=== PATIENT | male | born 1955 | race Caucasian/White ===

== ENCOUNTER 2016-11-04 16:21 | Inpatient (IN) | payer OTHER ==
[~2016-11-04] VITALS: Ht 180.3 cm; Wt 136.3 kg
[~2016-11-04 16:21] MED LIST: ADVAIR 250/501 DISK IH; AMLODIPINE BESY10 MG PO; AMLODIPINE BESYL5 MG PO; AQUASOL-A,10000 UNIT PO; ARANESP60 MCG/0.3 SC; ASCORBIC ACID250 MG PO; ASCORBIC ACID500 M3 PO; ASCORBIC ACID500 MG PO; ASPIR 8181 M1 PO; ASPIR-LOW81 MG PO; ASPIR-TRIN325 M1 PO; AVENTYL,PAMELOR10 MG PO; Ascorbic Acid,Ester- PO; Aspirin E.C. PO; BACTRIM,SEPT1 TABLE1 PO; BENADRYL25 MG PO; Bactrim,Septra DS 80 PO; CHEWABLE MULTI1 EACH PO; CLINDAMYCIN 600 MG IV; COUMADIN3 MG PO; COUMADIN4 MG PO; CYANOCOBALAM1000 MCG PO; Chloraseptic Spray C MM; Chronulac,Cephulac,E PO; Cozaar PO; Cymbalta PO; DAILY VALUE1 EACH PO; DOLOPHINE HCL10 MG PO; DUONEB 2.5-0.5 M3 ML AEROSOL; DUONEB 2.5-0.5 M3 ML IH; Dextrose 10% in Wate IV; Dextrose 50% in Wate IV; DuoNeb IH; ELIQUIS2.5 MG PO; ELIQUIS5 MG PO; ENDOCET 5-3251 EACH PO; EPOGEN,PRO10000 UNIT IV; EPOGEN,PRO20000 UNIT IV; EPOGEN,PRO20000 UNIT SC; Ecotrin PO; FEOSOL325 MG PO; FERGON324 MG PO; FERROUS SULFAT325 MG PO; FLORASTOR250 MG PO; FOLIC ACID1 MG PO; Feosol PO; Folvite PO; GABAPENTIN100 MG PO; GLUCAGEN1 MG IM/SC; GLUCO BURST37.5 GM PO; HEP-LOCK F100 UNIT/1 IV; HEPARIN LO IV; HEPARIN SO5000 UNITS SC; HYDRALAZINE HCL10 MG PO; IRON325 M1 PO; IRON325 MG PO; KETOCONAZOLE60 GM TP; KLONOPIN1 M1 PO; KLONOPIN1 MG PO; KlonoPIN PO; LABETALOL HCL100 MG PO; LANTUS 3 M100 UNITS/ SC; LANTUS 3 M100 UNITS1 SC; LEVEMIR FL100 UNIT/1 SC; LEVEMIR FL100 UNITS/ SC; LEVEMIR100 UNIT/2 SC; LISINOPRIL2.5 MG PO; LO-DOSE ASPIRIN81 M1 PO; MEROPENEM1 GM IV; METHADONE HCL40 MG PO; METHADONE1 MG/1 ML PO; METHADONE10 MG PO; METHADONE5 MG PO; METHadone HCl PO; MIRALAX, GLYCOL1 PK1 PO; MIRALAX17 GM PO; MIRALAX255 GM PO; MULTIVITAMIN1 EAC2 PO; Methadone PO; Miralax, Glycolax PO; NEURONTIN100 MG PO; NEURONTIN300 MG PO; NITROSTAT0.4 MG SL; NORMAL SALINE FL5 ML IV; NORTRIPTYLINE H10 MG PO; NORVASC5 MG PO; NOVOLIN 70100 UNIT/1 SQ; NOVOLIN 70100 UNITS/ SC; NOVOLIN SC; NOVOLOG 10100 UNITS/ SC; NOVOLOG MI100 UNIT/M PO; NOVOLOG MI100 UNIT/M SC; NOVOLOG PE100 UNITS/ SC; Neurontin PO; Nizoral 2% Cream TP; Norvasc PO; OMEPRAZOLE20 M2 PO; OMEPRAZOLE20 MG PO; OMEPRAZOLE40 M1 PO; ONE-A-DAY ESSE1 EAC1 PO; OXYCODONE HCL5 MG PO; PHENERGAN25 MG/ML IM; POLY-VITAMIN1 EACH PO; POLYETHYLENE G255 GM; PRILOSEC40 MG PO; PROCRIT10000 UNI1 IV; PROMETHAZINE12.5 M1 PO; PROTONIX40 MG PO; Pepcid PO; QUETIAPINE FUM100 MG PO; QUETIAPINE FUM200 MG PO; QUETIAPINE FUM300 MG PO; QUETIAPINE FUMA50 MG PO; RANITIDINE HCL150 MG PO; ROXICODONE5 MG PO; Rocephin IV; SENNA PLUS TAB1 EACH PO; SENNA8.6 MG PO; SEROQUEL XR150 MG PO; SEROQUEL XR300 MG PO; SEROQUEL100 MG PO; SEROQUEL200 MG PO; SEROQUEL300 MG PO; SEROQUEL50 MG PO; SEROquel PO; SODIUM CHLORIDE1 G1 PO; SPIRONOLACTONE25 MG PO; ST. JOSEPH ASPI81 MG PO; SUDAFED PO; Seroquel PO; TAMSULOSIN HCL0.4 MG PO; TRANDATE100 MG PO; TYLENOL REGULA325 MG PO; TYLENOL W/COD1 COMBO PO; TYLENOL WITH C1 EACH PO; Theragran PO; Unasyn IV; VANCOMYCIN1 GM/250 M IV; VANCOMYCIN1.25 GM/25 IV; VANCOMYCIN1500 MG/25 IV; VIBRAMYCIN100 MG PO; VITAMIN C100 MG PO; VITAMIN D2000 INTUN PO; VITAMIN D2000 UNIT PO; VITAMIN D22000 UNIT PO; Vancomycin IV; Vibramycin, Doryx PO; Vitamin D PO; ZANTAC150 MG PO; ZOSYN 3.373.375 GM/5 IV; ZOSYN 3.3753.375 GM IV; ZYVOX600 MG PO; ZYVOX600 MG/300 IV; Zinc Sulfate PO; oxyCODONE PO
[2016-11-04] MEDS ORDERED: NORVASC10 MG PO (16:27)
[2016-11-04] MEDS ORDERED: ASPIR 8181 M1 PO (16:28)
[2016-11-04] MEDS ORDERED: ARANESP60 MCG/0.3 IV (16:28)
[2016-11-04] MEDS ORDERED: CELEXA20 MG PO (16:29)
[2016-11-04] MEDS ORDERED: CYANOCOBALAM1000 MCG PO (16:29)
[2016-11-04] MEDS ORDERED: FOLIC ACID1 MG PO (16:30)
[2016-11-04] MEDS ORDERED: LEVEMIR FL100 UNIT/1 SC (16:30)
[2016-11-04] MEDS ORDERED: IRON325 MG PO (16:30)
[2016-11-04] MEDS ORDERED: METHADONE5 MG PO ×2 (16:31→16:35)
[2016-11-04] MEDS ORDERED: DAILY VALUE1 EACH PO (16:32)
[2016-11-04] MEDS ORDERED: PROTONIX40 MG PO (16:32)
[2016-11-04] MEDS ORDERED: FLOMAX0.4 MG PO (16:33)
[2016-11-04] MEDS ORDERED: SEROQUEL200 MG PO (16:33)
[2016-11-04] MEDS ORDERED: SEROQUEL50 MG PO (16:33)
[2016-11-04] MEDS ORDERED: FLORASTOR250 MG PO (16:34)
[2016-11-04] MEDS ORDERED: XANAX0.5 MG PO ×2 (16:34→16:41)
[2016-11-04] MEDS ORDERED: ELIQUIS2.5 MG PO (16:34)
[2016-11-04] MEDS ORDERED: VITAMIN C250 MG PO (16:34)
[2016-11-04] MEDS ORDERED: LABETALOL HCL100 MG PO (16:35)
[2016-11-04] MEDS ORDERED: SENNA PLUS TAB1 EACH PO (16:36)
[2016-11-04] MEDS ORDERED: MIRALAX17 GM PO (16:36)
[2016-11-04] MEDS ORDERED: HYDRALAZINE HCL PO (16:37)
[2016-11-04] MEDS ORDERED: [UNRECOGNIZED DRUG - OTHER] (16:38)
[2016-11-04] MEDS ORDERED: ADVAIR 250/501 DISK IH (16:38)
[2016-11-04] MEDS ORDERED: ATROVENT 00.5 MG/2.5 IH (16:39)
[2016-11-04] MEDS ORDERED: ROXICODONE5 MG PO (16:40)
[2016-11-04] MEDS ORDERED: PREVNAR 13 SYR0.5 ML IM (16:40)
[2016-11-04] MEDS ORDERED: TYLENOL WITH C1 EACH PO (16:41)
[2016-11-04 17:35] LABS: EOSINOPHIL (%) 0.4 % (0-5); HEMATOCRIT 25.6 % (38.0-50.0); IMMATURE GRANULOCYTE (%) 0.3 % (0.0-0.7); IMMATURE GRANULOCYTE COUNT 0.2 K/uL; LYMPHOCYTE COUNT 0.5 K/uL (1.0-2.8); MCH 28.7 PG (29.0-34.0); MCHC 31.6 G/DL (30.0-36.0); MCV 90.8 FL (86-99); MEAN PLAT.VOLUME 9.9 uM^3 (9.0-12.4); MONOCYTE COUNT 0.6 K/uL (0-0.8); NEUTROPHIL (%) 84.8 % (45-76); NEUTROPHIL COUNT 6.2 K/uL (1.8-6.4); RBC DIS.WIDTH-CV 13.3 % (11.8-14.6); RBC DIS.WIDTH-SD 42.4 % (39-53)
[2016-11-04 17:36] LABS: PLATELET COUNT 147 K/uL (156-360); RED BLOOD COUNT 2.82 M/uL (4.00-5.50); WHITE BLOOD COUNT 7.4 K/uL (4.1-10.2)
[2016-11-04 17:53] LABS: ANION GAP 8 MEQ/L (2-14); CHLORIDE 98 MEQ/L (99-109); POTASSIUM 4.7 MEQ/L (3.7-5.4); SAMPLE HEMOLYSIS CHECK 0; SAMPLE ICTERIC CHECK 0; SAMPLE LIPEMIA CHECK 0; SODIUM 132 MEQ/L (136-147); TOTAL BILIRUBIN 0.4 MG/DL (0.0-1.0)
[2016-11-04 17:59] LABS: ALKALINE PHOSPHATASE 113 IU/L (3-129); GFR ESTIMATE (CALCULATED) 35 mL/min/; GLUCOSE 311 mg/dL (70-99); UREA NITROGEN (BUN) 25 mg/dL (9-23)
[2016-11-04 18:16] LABS: INFLUENZA A VIRAL ANTIGEN NEGATIVE; INFLUENZA B VIRAL ANTIGEN NEGATIVE
[2016-11-04 18:35] LABS: ADD MIUA? YES; BILIRUBIN NEGATIVE; BLOOD NEGATIVE; COLOR YELLOW ((YELLOW)); GLUCOSE (STRIP) NEGATIVE; KETONES NEGATIVE; LEUKOCYTES TRACE; NITRITE NEGATIVE; PH, URINE 5.5 (5-8); PROTEIN (STRIP) 30
[2016-11-04 18:55] LABS: BACTERIA NONE SEEN; CASTS NONE SEEN /LPF; CRYSTALS NONE SEEN; EPITHELIAL CELLS RARE; MUCUS NONE SEEN; PATHOLOGICAL CAST NONE SEEN; RED BLOOD CELLS 0-5 /HPF (0-5); SMALL ROUND CELL NONE SEEN; UCUL ADDED? NO; WHITE BLOOD CELLS 0-5 /HPF (0-5); YEAST-LIKE CELL NONE SEEN
[2016-11-04] MEDS ORDERED: NOVOLOG PE100 UNITS/ SC (20:49)
[2016-11-04] MEDS ORDERED: APRESOLINE10 MG PO (20:50)
[2016-11-05 00:38] VITALS: BP 124/61
[2016-11-05 03:51] VITALS: BP 129/62
[2016-11-05 07:36] VITALS: BP 118/58
[2016-11-05 15:52] VITALS: BP 101/54
[2016-11-05 19:26] VITALS: BP 92/50
[2016-11-05 23:42] VITALS: BP 109/58
[2016-11-06 08:07] VITALS: BP 126/67
[2016-11-06 09:50] LABS: EOSINOPHIL (%) 6.5 % (0-5); EOSINOPHIL COUNT 0.2 K/uL (0-0.3); HEMATOCRIT 22.9 % (38.0-50.0); LYMPHOCYTE COUNT 0.7 K/uL (1.0-2.8); MCH 28.6 PG (29.0-34.0); MCHC 32.3 G/DL (30.0-36.0); MCV 88.4 FL (86-99); MEAN PLAT.VOLUME 9.9 uM^3 (9.0-12.4); MONOCYTE (%) 14.2 % (3-12); MONOCYTE COUNT 0.3 K/uL (0-0.8); NEUTROPHIL (%) 48.7 % (45-76); NEUTROPHIL COUNT 1.1 K/uL (1.8-6.4); PLATELET COUNT 122 K/uL (156-360); RBC DIS.WIDTH-CV 14.4 % (11.8-14.6); RED BLOOD COUNT 2.59 M/uL (4.00-5.50); WHITE BLOOD COUNT 2.3 K/uL (4.1-10.2)
[2016-11-06 10:20] LABS: ANION GAP 7 MEQ/L (2-14); CHLORIDE 107 MEQ/L (99-109); GFR ESTIMATE (CALCULATED) 35 mL/min/; POTASSIUM 4.6 MEQ/L (3.7-5.4); SAMPLE HEMOLYSIS CHECK 0; SAMPLE ICTERIC CHECK 0; SAMPLE LIPEMIA CHECK 0; UREA NITROGEN (BUN) 31 mg/dL (9-23)
[2016-11-06 10:21] LABS: GLUCOSE 92 mg/dL (70-99); SODIUM 140 MEQ/L (136-147)
[2016-11-06 12:05] LABS: POINT-OF-CARE METER ID UU13113712
[2016-11-06 16:40] LABS: HEMATOCRIT 25.5 % (38.0-50.0); MCV 88.5 FL (86-99)
[2016-11-06 17:05] VITALS: BP 111/62
[2016-11-06 17:08] LABS: POINT-OF-CARE METER ID UU14149397
[2016-11-06 19:29] VITALS: BP 129/65
[2016-11-06 23:06] VITALS: BP 136/63
[2016-11-07 06:16] LABS: POINT-OF-CARE METER ID UU13113725
[2016-11-07 07:05] LABS: EOSINOPHIL (%) 5.7 % (0-5); EOSINOPHIL COUNT 0.2 K/uL (0-0.3); HEMATOCRIT 23.8 % (38.0-50.0); LYMPHOCYTE COUNT 1.1 K/uL (1.0-2.8); MCH 28.3 PG (29.0-34.0); MCHC 31.9 G/DL (30.0-36.0); MCV 88.5 FL (86-99); MEAN PLAT.VOLUME 9.8 uM^3 (9.0-12.4); MONOCYTE (%) 13.8 % (3-12); MONOCYTE COUNT 0.4 K/uL (0-0.8); NEUTROPHIL (%) 43.2 % (45-76); NEUTROPHIL COUNT 1.3 K/uL (1.8-6.4); PLATELET COUNT 130 K/uL (156-360); RBC DIS.WIDTH-CV 14.3 % (11.8-14.6); RBC DIS.WIDTH-SD 45.4 % (39-53); RED BLOOD COUNT 2.69 M/uL (4.00-5.50)
[2016-11-07 07:38] LABS: ANION GAP 9 MEQ/L (2-14); CHLORIDE 106 MEQ/L (99-109); GFR ESTIMATE (CALCULATED) 39 mL/min/; GLUCOSE 92 mg/dL (70-99); POTASSIUM 4.6 MEQ/L (3.7-5.4); SAMPLE HEMOLYSIS CHECK 0; SAMPLE ICTERIC CHECK 0; SAMPLE LIPEMIA CHECK 0; SODIUM 139 MEQ/L (136-147); UREA NITROGEN (BUN) 29 mg/dL (9-23)
[2016-11-07 07:55] VITALS: BP 123/71
[2016-11-07 16:03] VITALS: BP 127/67
[2016-11-07 21:34] LABS: POINT-OF-CARE METER ID UU13113725
[2016-11-08 01:00] VITALS: BP 135/66
[2016-11-08 06:27] LABS: HEMATOCRIT 24.5 % (38.0-50.0); MCH 28.5 PG (29.0-34.0); MCHC 32.2 G/DL (30.0-36.0); MCV 88.4 FL (86-99); MEAN PLAT.VOLUME 10.5 uM^3 (9.0-12.4); PLATELET COUNT 149 K/uL (156-360); RBC DIS.WIDTH-SD 44.9 % (39-53); RED BLOOD COUNT 2.77 M/uL (4.00-5.50)
[2016-11-08 06:41] LABS: POINT-OF-CARE METER ID UU13113725
[2016-11-08 06:54] LABS: ANION GAP 6 MEQ/L (2-14); CHLORIDE 108 MEQ/L (99-109); GFR ESTIMATE (CALCULATED) 51 mL/min/; GLUCOSE 80 mg/dL (70-99); POTASSIUM 4.4 MEQ/L (3.7-5.4); SAMPLE HEMOLYSIS CHECK 0; SAMPLE ICTERIC CHECK 0; SAMPLE LIPEMIA CHECK 0; SODIUM 139 MEQ/L (136-147); UREA NITROGEN (BUN) 28 mg/dL (9-23)
[2016-11-08 08:00] VITALS: BP 117/66
[2016-11-08 11:40] LABS: POINT-OF-CARE METER ID UU13113725
[2016-11-08] MEDS ORDERED: TYLENOL WITH C1 EACH PO (14:19)
[2016-11-08] MEDS ORDERED: XANAX0.5 MG PO ×2 (14:19)
[2016-11-08] MEDS ORDERED: METHADONE5 MG PO ×2 (14:19)
[2016-11-08] MEDS ORDERED: ROXICODONE5 MG PO (14:19)
[2016-11-08 17:11] VITALS: BP 139/66
[2016-11-08 17:15] LABS: POINT-OF-CARE METER ID UU13113725
== END 2016-11-08 17:43 | DRG 872 ==
LOC: EME 16:21 → 3EAST 20:27 → 5EAST 20:27 → EDOF 20:27 → 3EAST 21:26 → 5EAST 11-06 19:09
PROVIDERS: Emergency Medicine; Hospitalist; Internal Medicine
DX: A41.02 Sepsis due to Methicillin resistant Staphylococcus aureus (principal); L03.115 Cellulitis of right lower limb; A40.1 Sepsis due to streptococcus, group B; R65.20 Severe sepsis without septic shock; N17.9 Acute kidney failure, unspecified; D61.818 Other pancytopenia; M86.671 Other chronic osteomyelitis, right ankle and foot; E11.621 Type 2 diabetes mellitus with foot ulcer; L97.419 Non-pressure chronic ulcer of right heel and midfoot with unspecified severity; L89.312 Pressure ulcer of right buttock, stage 2; E11.40 Type 2 diabetes mellitus with diabetic neuropathy, unspecified; G89.4 Chronic pain syndrome; E11.610 Type 2 diabetes mellitus with diabetic neuropathic arthropathy; E11.69 Type 2 diabetes mellitus with other specified complication; I25.10 Atherosclerotic heart disease of native coronary artery without angina pectoris; E11.21 Type 2 diabetes mellitus with diabetic nephropathy; E11.22 Type 2 diabetes mellitus with diabetic chronic kidney disease; I12.9 Hypertensive chronic kidney disease with stage 1 through stage 4 chronic kidney disease, or unspecified chronic kidney disease; N18.3 Chronic kidney disease, stage 3 (moderate); K21.9 Gastro-esophageal reflux disease without esophagitis; F31.9 Bipolar disorder, unspecified; J45.909 Unspecified asthma, uncomplicated; I73.9 Peripheral vascular disease, unspecified; E78.5 Hyperlipidemia, unspecified; E66.01 Morbid (severe) obesity due to excess calories; Z79.4 Long term (current) use of insulin; Z79.891 Long term (current) use of opiate analgesic; Z95.1 Presence of aortocoronary bypass graft; Z88.1 Allergy status to other antibiotic agents; Z79.82 Long term (current) use of aspirin; Z79.01 Long term (current) use of anticoagulants; Z68.41 Body mass index [BMI] 40.0-44.9, adult; Z86.73 Personal history of transient ischemic attack (TIA), and cerebral infarction without residual deficits; Z89.422 Acquired absence of other left toe(s)
CPT/HCPCS: 71020; 73630; 76937; 80048; 80053; 80202; 81003; 82565; 82948; 83605; 85014; 85018; 85025; 85027; 87040; 87070; 87075; 87077; 87147; 87186; 87205; 87502; 87801; 94760; 99281; 99285; J0690; J0692; J0696; J1815; J2543; J3370; J7030; J7050

== ENCOUNTER 2017-05-05 13:23 | Emergency (ER) | payer OTHER ==
[~2017-05-05] VITALS: Ht 182.9 cm; Wt 102.6 kg
[~2017-05-05 13:23] MED LIST changes: +APRESOLINE10 MG PO; +ARANESP60 MCG/0.3 IV; +ATROVENT 00.5 MG/2.5 IH; +CELEXA20 MG PO; +FLOMAX0.4 MG PO; +HYDRALAZINE HCL PO; +NORVASC10 MG PO; +PREVNAR 13 SYR0.5 ML IM; +VITAMIN C250 MG PO; +XANAX0.5 MG PO; +[UNRECOGNIZED DRUG - OTHER]
[2017-05-05] MEDS ORDERED: MEDROL DOSEPAK4 MG PO (16:41)
[2017-05-05] MEDS ORDERED: VALIUM5 MG PO (16:41)
[2017-05-05 18:31] VITALS: BP 129/67
== END 2017-05-05 18:33 ==
LOC: EME 13:23
DX: M54.2 Cervicalgia (principal); I10 Essential (primary) hypertension; E11.9 Type 2 diabetes mellitus without complications; Z79.4 Long term (current) use of insulin; J45.909 Unspecified asthma, uncomplicated; Z86.14 Personal history of Methicillin resistant Staphylococcus aureus infection
CPT/HCPCS: 72125; 99281; 99285; J1885; J2270; J3360

== ENCOUNTER 2017-05-06 06:59 | Emergency (ER) | payer OTHER ==
[~2017-05-06] VITALS: Ht 182.9 cm; Wt 101.8 kg
[~2017-05-06 06:59] MED LIST changes: +MEDROL DOSEPAK4 MG PO; +VALIUM5 MG PO
[2017-05-06 07:44] LABS: EOSINOPHIL (%) 2.8 % (0-5); EOSINOPHIL COUNT 0.1 K/uL (0-0.3); HEMATOCRIT 24.6 % (38.0-50.0); IMMATURE GRANULOCYTE (%) 0.4 % (0.0-0.7); INSTRUMENT ABS NEUTROPHIL CT 2.9 K/uL; LYMPHOCYTE COUNT 0.9 K/uL (1.0-2.8); MCH 25.8 PG (29.0-34.0); MCHC 30.5 G/DL (30.0-36.0); MCV 84.5 FL (86-99); MONOCYTE (%) 12.9 % (3-12); MONOCYTE COUNT 0.6 K/uL (0-0.8); NEUTROPHIL (%) 64.4 % (45-76); NEUTROPHIL COUNT 2.9 K/uL (1.8-6.4); PLATELET COUNT 208 K/uL (156-360); RBC DIS.WIDTH-CV 13.9 % (11.8-14.6); RBC DIS.WIDTH-SD 43.2 % (39-53); RED BLOOD COUNT 2.91 M/uL (4.00-5.50); WHITE BLOOD COUNT 4.6 K/uL (4.1-10.2)
[2017-05-06 07:59] LABS: CHLORIDE 102 mEq/L (99-109); POTASSIUM 4.9 mEq/L (3.7-5.4); SODIUM 136 mEq/L (136-147)
[2017-05-06 08:01] LABS: GLUCOSE 156 mg/dL (70-99)
[2017-05-06 08:02] LABS: ANION GAP 11 MEQ/L (2-14)
[2017-05-06 08:03] LABS: TOTAL BILIRUBIN 0.3 mg/dL (0.0-1.0)
[2017-05-06 08:05] LABS: ALKALINE PHOSPHATASE 111 IU/L (3-129); GFR ESTIMATE (CALCULATED) 35 mL/min/
[2017-05-06 08:06] LABS: UREA NITROGEN (BUN) 36 mg/dL (9-23)
[2017-05-06 08:13] LABS: TROP-I INTERPRETATION NEGATIVE; TROPONIN-I < 0.01 ng/mL (0.0-0.30)
[2017-05-06 08:52] LABS: ERTH.SED.RATE 50 MM/HR (0-20)
[2017-05-06 13:20] VITALS: BP 162/73
== END 2017-05-06 13:20 ==
LOC: EME → EDBD 06:59 → EME 06:59
PROVIDERS: Emergency Medicine
DX: M50.33 Other cervical disc degeneration, cervicothoracic region (principal); G89.29 Other chronic pain; I10 Essential (primary) hypertension; E11.9 Type 2 diabetes mellitus without complications; F32.9 Major depressive disorder, single episode, unspecified; F41.9 Anxiety disorder, unspecified; J45.909 Unspecified asthma, uncomplicated; K21.9 Gastro-esophageal reflux disease without esophagitis; Z98.1 Arthrodesis status; Z87.442 Personal history of urinary calculi; Z86.73 Personal history of transient ischemic attack (TIA), and cerebral infarction without residual deficits; Z87.891 Personal history of nicotine dependence; Z79.4 Long term (current) use of insulin
CPT/HCPCS: 72141; 80053; 84484; 85025; 85651; 86140; 87651 90; 93005; 99281; 99285; J1885; J2270; J3010; J3360

== ENCOUNTER 2017-05-07 02:26 | Emergency (ER) | payer OTHER ==
[~2017-05-07] VITALS: Ht 170.2 cm; Wt 109.5 kg
[2017-05-07 06:04] VITALS: BP 120/67
== END 2017-05-07 06:05 ==
LOC: EME → EDBD 02:26 → EME 02:26
DX: M50.20 Other cervical disc displacement, unspecified cervical region (principal); I10 Essential (primary) hypertension; E11.42 Type 2 diabetes mellitus with diabetic polyneuropathy; Z79.4 Long term (current) use of insulin; K21.9 Gastro-esophageal reflux disease without esophagitis; J45.909 Unspecified asthma, uncomplicated; F32.9 Major depressive disorder, single episode, unspecified; Z86.73 Personal history of transient ischemic attack (TIA), and cerebral infarction without residual deficits
CPT/HCPCS: 99281; 99284; J1885; J2270; J3360

== ENCOUNTER 2017-05-28 15:04 | Inpatient (IN) | payer OTHER ==
[~2017-05-28] VITALS: Ht 180.3 cm; Wt 96.5 kg
[2017-05-28] VITALS (8 sets, daily range): BP systolic 122–149; BP diastolic 66–74
[2017-05-28 16:32] LABS: EOSINOPHIL (%) 5.1 % (0-5); EOSINOPHIL COUNT 0.2 K/uL (0-0.3); HEMATOCRIT 20.6 % (38.0-50.0); IMMATURE GRANULOCYTE (%) 0.6 % (0.0-0.7); INSTRUMENT ABS NEUTROPHIL CT 1.7 K/uL; LYMPHOCYTE COUNT 0.9 K/uL (1.0-2.8); MCH 24.6 PG (29.0-34.0); MCHC 30.6 G/DL (30.0-36.0); MONOCYTE (%) 10.3 % (3-12); MONOCYTE COUNT 0.3 K/uL (0-0.8); NEUTROPHIL (%) 53.5 % (45-76); NEUTROPHIL COUNT 1.7 K/uL (1.8-6.4); RBC DIS.WIDTH-CV 15.3 % (11.8-14.6); RED BLOOD COUNT 2.56 M/uL (4.00-5.50); WHITE BLOOD COUNT 3.1 K/uL (4.1-10.2)
[2017-05-28 16:33] LABS: CHLORIDE 103 mEq/L (99-109); POTASSIUM 5.9 mEq/L (3.7-5.4); SODIUM 133 mEq/L (136-147)
[2017-05-28 16:34] LABS: MCV 80.5 FL (86-99)
[2017-05-28 16:35] LABS: GLUCOSE 182 mg/dL (70-99)
[2017-05-28 16:36] LABS: ANION GAP 8 MEQ/L (2-14)
[2017-05-28 16:39] LABS: ALKALINE PHOSPHATASE 123 IU/L (3-129); GFR ESTIMATE (CALCULATED) 25 mL/min/
[2017-05-28 16:40] LABS: DIRECT BILIRUBIN 0.1 mg/dL (0.0-0.3); UREA NITROGEN (BUN) 45 mg/dL (9-23)
[2017-05-28 16:43] LABS: INTER. NORMALIZED RATIO 1.3; PROTHROMBIN TIME 14.1 SEC (10.2-12.9)
[2017-05-28 16:45] LABS: PTT 33.2 SEC (25-37)
[2017-05-28 17:08] LABS: TOTAL BILIRUBIN 0.2 MG/DL (0.0-1.0)
[2017-05-28 17:26] LABS: MEAN PLAT.VOLUME 9.5 uM^3 (9.0-12.4); PLAT.SUFFICIENCY ADEQUATE; PLATELET COUNT 145 K/uL (156-360)
[2017-05-28] MEDS ORDERED: ARANESP60 MCG/0.3 IV (19:56)
[2017-05-28] MEDS ORDERED: LANTUS 3 M100 UNITS1 SC ×2 (20:05)
[2017-05-28] MEDS ORDERED: METHADONE5 MG PO (20:08)
[2017-05-28] MEDS ORDERED: QUETIAPINE FUM300 MG PO (20:10)
[2017-05-28] MEDS ORDERED: XARELTO20 MG PO (20:11)
[2017-05-28] MEDS ORDERED: BACTRIM,SEPT1 TABLET PO (20:12)
[2017-05-28] MEDS ORDERED: COLACE100 MG PO (20:13)
[2017-05-28] MEDS ORDERED: METHADONE10 MG PO (20:20)
[2017-05-28] MEDS ORDERED: HUMALOG100 UNIT/2 SC (20:21)
[2017-05-28] MEDS ORDERED: CYCLOBENZAPRINE5 MG PO (20:22)
[2017-05-28] MEDS ORDERED: TYLENOL REGULA325 MG PO (20:23)
[2017-05-28] MEDS ORDERED: OXYCODONE HCL10 MG PO (20:23)
[2017-05-29 03:47] VITALS: BP 122/64
[2017-05-29 05:56] LABS: EOSINOPHIL COUNT 0.3 K/uL (0-0.3); HEMATOCRIT 28.2 % (38.0-50.0); IMMATURE GRANULOCYTE (%) 0.3 % (0.0-0.7); INSTRUMENT ABS NEUTROPHIL CT 1.7 K/uL; LYMPHOCYTE COUNT 1.3 K/uL (1.0-2.8); MCH 26.7 PG (29.0-34.0); MCHC 32.3 G/DL (30.0-36.0); MCV 82.7 FL (86-99); MONOCYTE (%) 9.7 % (3-12); MONOCYTE COUNT 0.4 K/uL (0-0.8); NEUTROPHIL COUNT 1.7 K/uL (1.8-6.4); RBC DIS.WIDTH-CV 15.6 % (11.8-14.6); RBC DIS.WIDTH-SD 46.5 % (39-53); WHITE BLOOD COUNT 3.6 K/uL (4.1-10.2)
[2017-05-29 06:00] LABS: ANION GAP 13 MEQ/L (2-14); CHLORIDE 103 MEQ/L (99-109); GFR ESTIMATE (CALCULATED) 28 mL/min/; IRON 92 MCG/DL (35-150); POTASSIUM 4.8 MEQ/L (3.7-5.4); SAMPLE HEMOLYSIS CHECK 0; SAMPLE ICTERIC CHECK 0; SAMPLE LIPEMIA CHECK 0; SODIUM 137 MEQ/L (136-147); UREA NITROGEN (BUN) 42 mg/dL (9-23)
[2017-05-29 06:02] LABS: GLUCOSE 85 mg/dL (70-99)
[2017-05-29 06:04] LABS: PLATELET COUNT 189 K/uL (156-360); RED BLOOD COUNT 3.41 M/uL (4.00-5.50)
[2017-05-29 07:17] LABS: POINT-OF-CARE METER ID UU13113717
[2017-05-29 07:56] VITALS: BP 133/70
[2017-05-29 08:45] LABS: INTERNAL CONTROL VALID? YES
[2017-05-29 12:42] VITALS: BP 165/72
[2017-05-29 13:08] LABS: MCV 82.5 FL (86-99)
[2017-05-29 15:15] VITALS: BP 110/59
[2017-05-29 18:21] LABS: HEMATOCRIT 25.4 % (38.0-50.0); MCV 81.9 FL (86-99)
[2017-05-29 19:57] VITALS: BP 128/69
[2017-05-29 21:51] LABS: POINT-OF-CARE METER ID UU13113717
[2017-05-29 23:44] VITALS: BP 123/65
[2017-05-30 04:23] VITALS: BP 121/67
[2017-05-30 07:17] LABS: ANION GAP 7 MEQ/L (2-14); CHLORIDE 102 MEQ/L (99-109); GFR ESTIMATE (CALCULATED) 30 mL/min/; GLUCOSE 96 mg/dL (70-99); POTASSIUM 4.8 MEQ/L (3.7-5.4); SAMPLE HEMOLYSIS CHECK 0; SAMPLE ICTERIC CHECK 0; SAMPLE LIPEMIA CHECK 0; SODIUM 133 MEQ/L (136-147); UREA NITROGEN (BUN) 41 mg/dL (9-23)
[2017-05-30 07:35] VITALS: BP 124/67
[2017-05-30 11:35] LABS: FERRITIN 245 NG/ML (22-322)
[2017-05-30 12:25] LABS: POINT-OF-CARE METER ID UU13113717
[2017-05-30 12:34] VITALS: BP 156/71
[2017-05-30 13:46] LABS: HEMATOCRIT 23.8 % (38.0-50.0); MCH 25.2 PG (29.0-34.0); MCHC 30.7 G/DL (30.0-36.0); MCV 82.1 FL (86-99); PLATELET COUNT 155 K/uL (156-360); RBC DIS.WIDTH-CV 15.9 % (11.8-14.6); RBC DIS.WIDTH-SD 47.9 % (39-53); WHITE BLOOD COUNT 3.6 K/uL (4.1-10.2)
[2017-05-30 14:14] LABS: HEMATOCRIT 24.3 % (38.0-50.0); MCV 83.2 FL (86-99)
[2017-05-30 16:10] VITALS: BP 150/63
[2017-05-30 17:08] LABS: POINT-OF-CARE METER ID UU14188625
[2017-05-30 19:25] VITALS: BP 122/70
[2017-05-30 23:40] VITALS: BP 136/62
[2017-05-31] VITALS (13 sets, daily range): BP systolic 121–158; BP diastolic 61–89
[2017-05-31 05:28] LABS: EOSINOPHIL (%) 8.2 % (0-5); EOSINOPHIL COUNT 0.3 K/uL (0-0.3); HEMATOCRIT 22.4 % (38.0-50.0); IMMATURE GRANULOCYTE (%) 0.3 % (0.0-0.7); INSTRUMENT ABS NEUTROPHIL CT 1.3 K/uL; LYMPHOCYTE COUNT 1.5 K/uL (1.0-2.8); MCH 26.8 PG (29.0-34.0); MCHC 32.6 G/DL (30.0-36.0); MCV 82.4 FL (86-99); MEAN PLAT.VOLUME 10.2 uM^3 (9.0-12.4); MONOCYTE (%) 10.8 % (3-12); MONOCYTE COUNT 0.4 K/uL (0-0.8); NEUTROPHIL (%) 37.2 % (45-76); NEUTROPHIL COUNT 1.3 K/uL (1.8-6.4); NRBC (%) 0.6 /100 WBC (0-0); PLATELET COUNT 151 K/uL (156-360); RBC DIS.WIDTH-SD 47.9 % (39-53); RED BLOOD COUNT 2.72 M/uL (4.00-5.50); WHITE BLOOD COUNT 3.4 K/uL (4.1-10.2)
[2017-05-31 09:46] LABS: ALKALINE PHOSPHATASE 103 IU/L (3-129); ANION GAP 8 MEQ/L (2-14); CHLORIDE 102 MEQ/L (99-109); DIRECT BILIRUBIN 0.1 mg/dL (0.0-0.3); GLUCOSE 106 mg/dL (70-99); LACTATE DEHYDROGENASE 121 IU/L (20-246); POTASSIUM 4.7 MEQ/L (3.7-5.4); SAMPLE HEMOLYSIS CHECK 0; SAMPLE ICTERIC CHECK 0; SAMPLE LIPEMIA CHECK 0; SODIUM 132 MEQ/L (136-147); UREA NITROGEN (BUN) 41 mg/dL (9-23)
[2017-05-31 09:47] LABS: GFR ESTIMATE (CALCULATED) 39 mL/min/; TOTAL BILIRUBIN 0.3 MG/DL (0.0-1.0)
[2017-05-31 13:08] LABS: HEMATOCRIT 24.2 % (38.0-50.0); MCV 83.4 FL (86-99)
[2017-05-31 19:06] LABS: HEMATOCRIT 26.4 % (38.0-50.0)
[2017-05-31 22:07] LABS: POINT-OF-CARE METER ID UU14188625
[2017-06-01 01:23] LABS: HEMATOCRIT 27.7 % (38.0-50.0); MCV 82.4 FL (86-99)
[2017-06-01 05:51] LABS: EOSINOPHIL (%) 8.2 % (0-5); EOSINOPHIL COUNT 0.3 K/uL (0-0.3); HEMATOCRIT 26.9 % (38.0-50.0); IMM.RETIC FRACTION 15.2 % (3-19); IMMATURE GRANULOCYTE (%) 0.6 % (0.0-0.7); INSTRUMENT ABS NEUTROPHIL CT 1.2 K/uL; LYMPHOCYTE COUNT 1.4 K/uL (1.0-2.8); MCH 26.9 PG (29.0-34.0); MCHC 32.3 G/DL (30.0-36.0); MEAN PLAT.VOLUME 9.9 uM^3 (9.0-12.4); MONOCYTE (%) 12.4 % (3-12); MONOCYTE COUNT 0.4 K/uL (0-0.8); NEUTROPHIL (%) 36.1 % (45-76); NEUTROPHIL COUNT 1.2 K/uL (1.8-6.4); PLATELET COUNT 153 K/uL (156-360); RBC DIS.WIDTH-SD 48.6 % (39-53); RED BLOOD COUNT 3.24 M/uL (4.00-5.50); RETICULOCYTE COUNT 1.8 % (0.5-1.8); WHITE BLOOD COUNT 3.4 K/uL (4.1-10.2)
[2017-06-01 06:20] LABS: ANION GAP 7 MEQ/L (2-14); CHLORIDE 102 MEQ/L (99-109); GFR ESTIMATE (CALCULATED) 39 mL/min/; GLUCOSE 109 mg/dL (70-99); POTASSIUM 4.8 MEQ/L (3.7-5.4); SAMPLE HEMOLYSIS CHECK 0; SAMPLE ICTERIC CHECK 0; SAMPLE LIPEMIA CHECK 0; SODIUM 134 MEQ/L (136-147); UREA NITROGEN (BUN) 42 mg/dL (9-23)
[2017-06-01 08:05] VITALS: BP 158/78
[2017-06-01 08:09] LABS: POINT-OF-CARE METER ID UU14188625
[2017-06-01 12:09] LABS: POINT-OF-CARE METER ID UU13113717
[2017-06-01 15:43] VITALS: BP 104/65
[2017-06-01 16:42] LABS: POINT-OF-CARE METER ID UU13113717
[2017-06-01 21:54] LABS: POINT-OF-CARE METER ID UU14188625
[2017-06-01 23:47] VITALS: BP 137/66
[2017-06-02 07:39] LABS: POINT-OF-CARE METER ID UU14174225
[2017-06-02 08:06] VITALS: BP 178/64
[2017-06-02 09:44] LABS: ANION GAP 7 MEQ/L (2-14); CHLORIDE 101 MEQ/L (99-109); GFR ESTIMATE (CALCULATED) 39 mL/min/; GLUCOSE 126 mg/dL (70-99); POTASSIUM 4.3 MEQ/L (3.7-5.4); SAMPLE HEMOLYSIS CHECK 0; SAMPLE ICTERIC CHECK 0; SAMPLE LIPEMIA CHECK 0; SODIUM 132 MEQ/L (136-147); UREA NITROGEN (BUN) 48 mg/dL (9-23)
[2017-06-02 12:08] LABS: POINT-OF-CARE METER ID UU14174225
== END 2017-06-02 14:00 | DRG 638 ==
LOC: EME 15:04 → EDOF 18:39 → 5SOUTH 18:39 → ENRESERV 18:49 → 5SOUTH 20:50
PROVIDERS: Emergency Medicine; Hospitalist; Internal Medicine Nephrology; Nurse Practitioner Adult Health; Physician Assistant Medical
PROC: 30233N1 Transfusion of Nonautologous Red Blood Cells into Peripheral Vein, Percutaneous Approach (ICD-10-PCS; principal; 2017-05-31)
DX: E11.65 Type 2 diabetes mellitus with hyperglycemia (principal); N17.9 Acute kidney failure, unspecified; E11.622 Type 2 diabetes mellitus with other skin ulcer; E11.22 Type 2 diabetes mellitus with diabetic chronic kidney disease; E11.51 Type 2 diabetes mellitus with diabetic peripheral angiopathy without gangrene; E11.69 Type 2 diabetes mellitus with other specified complication; E87.5 Hyperkalemia; D50.9 Iron deficiency anemia, unspecified; D52.9 Folate deficiency anemia, unspecified; D63.1 Anemia in chronic kidney disease; M86.60 Other chronic osteomyelitis, unspecified site; E11.621 Type 2 diabetes mellitus with foot ulcer; N18.3 Chronic kidney disease, stage 3 (moderate); I25.10 Atherosclerotic heart disease of native coronary artery without angina pectoris; L89.159 Pressure ulcer of sacral region, unspecified stage; L97.429 Non-pressure chronic ulcer of left heel and midfoot with unspecified severity; L97.319 Non-pressure chronic ulcer of right ankle with unspecified severity; L03.90 Cellulitis, unspecified; L97.409 Non-pressure chronic ulcer of unspecified heel and midfoot with unspecified severity; E11.21 Type 2 diabetes mellitus with diabetic nephropathy; E11.42 Type 2 diabetes mellitus with diabetic polyneuropathy; I12.9 Hypertensive chronic kidney disease with stage 1 through stage 4 chronic kidney disease, or unspecified chronic kidney disease; E87.1 Hypo-osmolality and hyponatremia; F11.10 Opioid abuse, uncomplicated; J98.11 Atelectasis; E86.0 Dehydration; K21.9 Gastro-esophageal reflux disease without esophagitis; F31.9 Bipolar disorder, unspecified; N40.1 Benign prostatic hyperplasia with lower urinary tract symptoms; J45.909 Unspecified asthma, uncomplicated; T37.0X5A Adverse effect of sulfonamides, initial encounter; B18.2 Chronic viral hepatitis C; Z79.4 Long term (current) use of insulin; Z98.1 Arthrodesis status; Z86.73 Personal history of transient ischemic attack (TIA), and cerebral infarction without residual deficits; Z86.711 Personal history of pulmonary embolism; Z86.14 Personal history of Methicillin resistant Staphylococcus aureus infection; Z79.899 Other long term (current) drug therapy; Z79.01 Long term (current) use of anticoagulants; Z79.82 Long term (current) use of aspirin; Z87.442 Personal history of urinary calculi; Z95.1 Presence of aortocoronary bypass graft; Z90.49 Acquired absence of other specified parts of digestive tract; Z72.0 Tobacco use; Z68.29 Body mass index [BMI] 29.0-29.9, adult; Z80.41 Family history of malignant neoplasm of ovary; Z82.49 Family history of ischemic heart disease and other diseases of the circulatory system
CPT/HCPCS: 71010; 76770; 80048; 80076; 82272; 82607; 82668 90; 82728; 82746; 82948; 83010 90; 83540; 83605; 83615; 83735; 84466; 85014; 85018; 85025; 85027; 85045; 85610; 85730; 86900; 86901; 86920; 99281; 99284; J0881; J1815; P9016

== ENCOUNTER → 2017-07-03 | Outpatient (CLI) | payer OTHER ==
[~2017-07-03] MED LIST changes: +BACTRIM,SEPT1 TABLET PO; +COLACE100 MG PO; +CYCLOBENZAPRINE5 MG PO; +HUMALOG100 UNIT/2 SC; +OXYCODONE HCL10 MG PO; +XARELTO20 MG PO
== END ==
LOC: RAD 08:21
DX: R16.1 Splenomegaly, not elsewhere classified (principal); J98.4 Other disorders of lung; K86.9 Disease of pancreas, unspecified; K59.09 Other constipation; R10.30 Lower abdominal pain, unspecified; Z95.9 Presence of cardiac and vascular implant and graft, unspecified; D64.9 Anemia, unspecified
CPT/HCPCS: 71260; 74177

== ENCOUNTER 2017-07-15 19:41 | Emergency (ER) | payer OTHER ==
[~2017-07-15] VITALS: Ht 182.9 cm; Wt 101.0 kg
[2017-07-15 21:16] LABS: EOSINOPHIL (%) 2.4 % (0-5); EOSINOPHIL COUNT 0.1 K/uL (0-0.3); HEMATOCRIT 26.5 % (38.0-50.0); IMMATURE GRANULOCYTE (%) 0.6 % (0.0-0.7); INSTRUMENT ABS NEUTROPHIL CT 3.9 K/uL; LYMPHOCYTE COUNT 0.9 K/uL (1.0-2.8); MCH 25.6 PG (29.0-34.0); MCHC 30.6 G/DL (30.0-36.0); MCV 83.6 FL (86-99); MEAN PLAT.VOLUME 9.7 uM^3 (9.0-12.4); MONOCYTE (%) 7.2 % (3-12); MONOCYTE COUNT 0.4 K/uL (0-0.8); NEUTROPHIL (%) 72.8 % (45-76); NEUTROPHIL COUNT 3.9 K/uL (1.8-6.4); PLATELET COUNT 207 K/uL (156-360); RBC DIS.WIDTH-CV 17.2 % (11.8-14.6); RBC DIS.WIDTH-SD 52.8 % (39-53); RED BLOOD COUNT 3.17 M/uL (4.00-5.50); WHITE BLOOD COUNT 5.3 K/uL (4.1-10.2)
[2017-07-15 21:22] LABS: CHLORIDE 96 mEq/L (99-109); POTASSIUM 5.2 mEq/L (3.7-5.4); SODIUM 133 mEq/L (136-147)
[2017-07-15 21:23] LABS: GLUCOSE 193 mg/dL (70-99)
[2017-07-15 21:25] LABS: ANION GAP 10 MEQ/L (2-14)
[2017-07-15 21:27] LABS: GFR ESTIMATE (CALCULATED) 36 mL/min/; INTER. NORMALIZED RATIO 1.8; PROTHROMBIN TIME 20.8 SEC (10.2-12.9)
[2017-07-15 21:28] LABS: UREA NITROGEN (BUN) 29 mg/dL (9-23)
[2017-07-15 21:30] LABS: PTT 36.4 SEC (25-37)
[2017-07-15 23:06] LABS: HEMATOCRIT 24.9 % (38.0-50.0); MCV 83.8 FL (86-99)
[2017-07-16 01:20] LABS: ERTH.SED.RATE QNS MM/HR (0-20)
[2017-07-16 01:27] VITALS: BP 132/76
[2017-07-16 01:43] VITALS: BP 114/69
[2017-07-16 01:44] LABS: C-REACTIVE PROTEIN 156.1 MG/L (0-10)
[2017-07-16 02:28] VITALS: BP 127/74
[2017-07-16 03:13] VITALS: BP 107/62
[2017-07-16 04:42] VITALS: BP 116/68
[2017-07-16 04:47] LABS: HEMATOCRIT 22.5 % (38.0-50.0); MCH 26.1 PG (29.0-34.0); MCHC 31.1 G/DL (30.0-36.0); MEAN PLAT.VOLUME 9.6 uM^3 (9.0-12.4); PLATELET COUNT 173 K/uL (156-360); RBC DIS.WIDTH-CV 17.3 % (11.8-14.6); RBC DIS.WIDTH-SD 53.4 % (39-53); RED BLOOD COUNT 2.68 M/uL (4.00-5.50)
[2017-07-17] MEDS ORDERED: ARANESP100 MCG/0. IV (09:03)
[2017-07-17] MEDS ORDERED: ELIQUIS5 MG PO (09:05)
[2017-07-17] MEDS ORDERED: REMERON15 M2 PO (09:09)
[2017-07-17] MEDS ORDERED: SENNA-S TABLET1 EACH PO (09:09)
[2017-07-17] MEDS ORDERED: NOVOLOG PE100 UNITS/ SC (09:11)
== END 2017-07-16 04:48 ==
LOC: EME 19:41
PROVIDERS: Emergency Medicine
DX: E11.621 Type 2 diabetes mellitus with foot ulcer (principal); L97.519 Non-pressure chronic ulcer of other part of right foot with unspecified severity; M86.671 Other chronic osteomyelitis, right ankle and foot; E11.69 Type 2 diabetes mellitus with other specified complication; D64.9 Anemia, unspecified; Z87.442 Personal history of urinary calculi; Z86.73 Personal history of transient ischemic attack (TIA), and cerebral infarction without residual deficits; K21.9 Gastro-esophageal reflux disease without esophagitis; J44.9 Chronic obstructive pulmonary disease, unspecified; G62.9 Polyneuropathy, unspecified; Z89.419 Acquired absence of unspecified great toe; Z89.429 Acquired absence of other toe(s), unspecified side; Z79.4 Long term (current) use of insulin; Z79.82 Long term (current) use of aspirin
CPT/HCPCS: 71010; 73630; 80048; 83605; 85014; 85018; 85025; 85027; 85610; 85651; 85730; 86140; 86850; 86900; 86901; 86920; 86999; 87040; 87070; 87075; 87077; 87147; 87186; 87205; 87801; 99281; 99284; J0295; J3010; J7040; J7050; P9016

== ENCOUNTER → 2017-07-17 | Outpatient (CLI) | payer OTHER ==
[2017-07-17] VITALS (8 sets, daily range): BP systolic 113–184; BP diastolic 65–83
[~2017-07-17] VITALS: Ht 180.3 cm; Wt 98.0 kg
[~2017-07-17] MED LIST changes: +ARANESP100 MCG/0. IV; +REMERON15 M2 PO; +SENNA-S TABLET1 EACH PO
== END ==
LOC: IVINF 08:58
DX: A49.02 Methicillin resistant Staphylococcus aureus infection, unspecified site (principal); D64.9 Anemia, unspecified
CPT/HCPCS: 36430; 86850; 86900; 86901; 86920; 86999; 96366; 96367; 96374; J1940; J3370; P9016

== ENCOUNTER 2017-10-08 16:26 | Emergency (ER) | payer OTHER ==
[~2017-10-08] VITALS: Ht 180.3 cm; Wt 95.0 kg
[2017-10-08 18:08] LABS: HEMATOCRIT 30.2 % (38.0-50.0); MCH 28.6 PG (29.0-34.0); MCHC 33.1 G/DL (30.0-36.0); MCV 86.3 FL (86-99); PLATELET COUNT 135 K/uL (156-360); RBC DIS.WIDTH-CV 13.3 % (11.8-14.6); RBC DIS.WIDTH-SD 41.7 % (39-53); WHITE BLOOD COUNT 5.2 K/uL (4.1-10.2)
[2017-10-08 18:20] LABS: CHLORIDE 102 mEq/L (99-109); POTASSIUM 4.7 mEq/L (3.7-5.4); SODIUM 138 mEq/L (136-147)
[2017-10-08 18:22] LABS: GLUCOSE 300 mg/dL (70-99)
[2017-10-08 18:23] LABS: ANION GAP 12 MEQ/L (2-14)
[2017-10-08 18:25] LABS: SERUM ETHYL ALCOHOL < 10 mg/dL
[2017-10-08 18:26] LABS: GFR ESTIMATE (CALCULATED) 29 mL/min/ (58.99-99999)
[2017-10-08 18:27] LABS: UREA NITROGEN (BUN) 47 mg/dL (9-23)
[2017-10-08 18:30] LABS: TROP-I INTERPRETATION NEGATIVE; TROPONIN-I < 0.01 ng/mL (0.0-0.30)
[2017-10-08 21:32] VITALS: BP 140/99
== END 2017-10-08 22:00 ==
LOC: EME 16:26
PROVIDERS: Emergency Medicine
DX: M50.10 Cervical disc disorder with radiculopathy, unspecified cervical region (principal); R51 Headache; M25.512 Pain in left shoulder; R11.0 Nausea; H53.8 Other visual disturbances; R44.1 Visual hallucinations; I10 Essential (primary) hypertension; E11.9 Type 2 diabetes mellitus without complications; Z79.4 Long term (current) use of insulin; Z79.01 Long term (current) use of anticoagulants; Z79.82 Long term (current) use of aspirin; Z79.891 Long term (current) use of opiate analgesic; Z86.14 Personal history of Methicillin resistant Staphylococcus aureus infection; Z86.73 Personal history of transient ischemic attack (TIA), and cerebral infarction without residual deficits; Z87.442 Personal history of urinary calculi
CPT/HCPCS: 70450; 80048; 84484; 85027; 93005; 99281; 99285; G0480

== ENCOUNTER 2017-10-28 14:16 | Emergency (ER) | payer OTHER ==
[~2017-10-28] VITALS: Ht 177.8 cm; Wt 85.1 kg
[2017-10-28 14:41] LABS: BASOPHIL (%) 0.1 % (0-1); EOSINOPHIL (%) 0.3 % (0-5); HEMATOCRIT 28.9 % (38.0-50.0); HEMOGLOBIN 9.7 G/DL (12.5-16.6); IMMATURE GRANULOCYTE (%) 0.3 % (0.0-0.7); LYMPHOCYTE (%) 13.6 % (15-42); LYMPHOCYTE COUNT 1.2 K/uL (1.0-2.8); MCH 28.2 PG (29.0-34.0); MCHC 33.6 G/DL (30.0-36.0); MONOCYTE (%) 8.9 % (3-12); MONOCYTE COUNT 0.8 K/uL (0-0.8); NEUTROPHIL (%) 76.8 % (45-76); NEUTROPHIL COUNT 6.6 K/uL (1.8-6.4); PLATELET COUNT 130 K/uL (156-360); RBC DIS.WIDTH-CV 13.1 % (11.8-14.6); RBC DIS.WIDTH-SD 39.6 % (39-53); RED BLOOD COUNT 3.44 M/uL (4.00-5.50); WHITE BLOOD COUNT 8.7 K/uL (4.1-10.2)
[2017-10-28 14:46] LABS: INTER. NORMALIZED RATIO 1.9
[2017-10-28 14:49] LABS: PTT 33.6 SEC (25-37)
[2017-10-28 14:52] LABS: ALBUMIN 2.7 g/dL (3.2-4.8); CHLORIDE 103 mEq/L (99-109); SODIUM 137 mEq/L (136-147)
[2017-10-28 14:53] LABS: MAGNESIUM 1.8 mg/dL (1.3-2.7)
[2017-10-28 14:54] LABS: GLUCOSE 186 mg/dL (70-99)
[2017-10-28 14:55] LABS: TOTAL PROTEIN 7.7 g/dL (6.4-8.3)
[2017-10-28 14:56] LABS: TOTAL BILIRUBIN 0.4 mg/dL (0.0-1.0)
[2017-10-28 14:58] LABS: ALKALINE PHOSPHATASE 109 IU/L (3-129); CREATININE 1.7 mg/dL (0.6-1.3); GFR ESTIMATE (CALCULATED) 44 mL/min/ (58.99-99999)
[2017-10-28 14:59] LABS: UREA NITROGEN (BUN) 50 mg/dL (9-23)
[2017-10-28 15:00] LABS: AST (GOT) 20 IU/L (2-34)
[2017-10-28 15:01] LABS: ALT (GPT) 14 IU/L (3-49); CREATINE KINASE 10 IU/L (1-294); TOTAL CK 10 IU/L (1-294); TROP-I INTERPRETATION NEGATIVE; TROPONIN-I < 0.01 ng/mL (0.0-0.30)
[2017-10-28 15:09] LABS: CK-MB 0.4 ng/mL (0.0-4.9)
[2017-10-28 17:40] LABS: APPEARANCE CLOUDY ((CLEAR)); BILIRUBIN NEGATIVE; BLOOD SMALL; COLOR AMBER ((YELLOW)); GLUCOSE (STRIP) 50; KETONES NEGATIVE; LEUKOCYTES LARGE; NITRITE NEGATIVE; PROTEIN (STRIP) 100; SPECIFIC GRAVITY 1.015 (1.000-1.030); UROBILINOGEN 0.2 MG/DL (0.2-1.0)
[2017-10-28 18:08] LABS: BACTERIA 4+ /HPF; EPITHELIAL CELLS NONE SEEN /HPF; MUCUS NONE SEEN /LPF; RED BLOOD CELLS 0-5 /HPF (0-5); UCUL ADDED? YES; WHITE BLOOD CELLS 20-30 /HPF (0-5)
[2017-10-28] MEDS ORDERED: NORVASC5 MG PO (18:38)
[2017-10-28] MEDS ORDERED: FLOMAX0.4 MG PO (18:40)
[2017-10-28] MEDS ORDERED: LANTUS 3 M100 UNITS1 SC (18:41)
[2017-10-28] MEDS ORDERED: MOVANTIK25 MG PO (18:43)
[2017-10-28] MEDS ORDERED: SEROQUEL200 MG PO (18:45)
[2017-10-28] MEDS ORDERED: SEROQUEL50 MG PO (18:45)
[2017-10-28] MEDS ORDERED: XANAX0.25 MG PO (18:49)
[2017-10-28] MEDS ORDERED: PEPCID20 MG PO (18:50)
[2017-10-28] MEDS ORDERED: ELIQUIS2.5 MG PO (18:50)
[2017-10-28] MEDS ORDERED: NORMODYNE,TRAN200 MG PO (18:51)
[2017-10-28] MEDS ORDERED: LYRICA75 MG PO (18:51)
[2017-10-28] MEDS ORDERED: MULTIVITAMINS1 EAC6 PO (18:55)
[2017-10-28] MEDS ORDERED: SENOKOT,SENN1 TABLET PO (18:59)
[2017-10-28] MEDS ORDERED: HUMALOG100 UNIT/2 SC (19:00)
[2017-10-28] MEDS ORDERED: FLEET ENEMA-AD118 ML PR (19:01)
[2017-10-28] MEDS ORDERED: DULCOLAX10 MG PR (19:01)
[2017-10-28] MEDS ORDERED: MILK OF MAGN PO (19:01)
[2017-10-29 01:00] VITALS: BP 134/73
== END 2017-10-29 00:59 | disposition short-term general hospital (02) ==
LOC: EME 14:16
PROVIDERS: Emergency Medicine
PROC: 0BH17EZ Insertion of Endotracheal Airway into Trachea, Via Natural or Artificial Opening (ICD-10-PCS; principal; 2017-10-28)
PROC: 5A12012 Performance of Cardiac Output, Single, Manual (ICD-10-PCS; principal; 2017-10-28)
PROC: 5A0935Z Assistance with Respiratory Ventilation, Less than 24 Consecutive Hours (ICD-10-PCS; principal; 2017-10-28)
PROC: 0T9B70Z Drainage of Bladder with Drainage Device, Via Natural or Artificial Opening (ICD-10-PCS; principal; 2017-10-28)
DX: S12.000A Unspecified displaced fracture of first cervical vertebra, initial encounter for closed fracture (principal); S12.100A Unspecified displaced fracture of second cervical vertebra, initial encounter for closed fracture; I46.9 Cardiac arrest, cause unspecified; R09.02 Hypoxemia; N39.0 Urinary tract infection, site not specified; R62.7 Adult failure to thrive; E86.0 Dehydration; N28.9 Disorder of kidney and ureter, unspecified; G89.29 Other chronic pain; J44.9 Chronic obstructive pulmonary disease, unspecified; K21.9 Gastro-esophageal reflux disease without esophagitis; G62.9 Polyneuropathy, unspecified; F32.9 Major depressive disorder, single episode, unspecified; F41.9 Anxiety disorder, unspecified; F31.9 Bipolar disorder, unspecified; B19.20 Unspecified viral hepatitis C without hepatic coma; Z86.73 Personal history of transient ischemic attack (TIA), and cerebral infarction without residual deficits; Z87.442 Personal history of urinary calculi; Z86.14 Personal history of Methicillin resistant Staphylococcus aureus infection; Z88.1 Allergy status to other antibiotic agents; Z88.8 Allergy status to other drugs, medicaments and biological substances
CPT/HCPCS: 70450; 71045; 72125; 74176; 80053; 81003; 82550; 82553; 83605; 83735; 84484; 85025; 85610; 85730; 87040; 87070; 87077; 87086; 87147; 87186; 87205; 87801; 93005; 94002; 99281; 99285; J0330; J2270; J2405; J2543; J2704; J3370; J7030

== ENCOUNTER 2018-01-25 19:37 | Emergency (ER) | payer OTHER ==
[~2018-01-25] VITALS: Ht 180.3 cm; Wt 99.1 kg
[~2018-01-25 19:37] MED LIST changes: +DULCOLAX10 MG PR; +FLEET ENEMA-AD118 ML PR; +LYRICA75 MG PO; +MILK OF MAGN PO; +MOVANTIK25 MG PO; +MULTIVITAMINS1 EAC6 PO; +NORMODYNE,TRAN200 MG PO; +PEPCID20 MG PO; +SENOKOT,SENN1 TABLET PO; +XANAX0.25 MG PO
[2018-01-25 21:02] LABS: HEMATOCRIT 25.8 % (38.0-50.0); HEMOGLOBIN 8.8 G/DL (12.5-16.6); MCH 30.1 PG (29.0-34.0); MCHC 34.1 G/DL (30.0-36.0); MCV 88.4 FL (86-99); PLATELET COUNT 167 K/uL (156-360); RBC DIS.WIDTH-CV 13.1 % (11.8-14.6); RBC DIS.WIDTH-SD 41.8 % (39-53); RED BLOOD COUNT 2.92 M/uL (4.00-5.50); WHITE BLOOD COUNT 5.6 K/uL (4.1-10.2)
[2018-01-25 21:13] LABS: CHLORIDE 104 mEq/L (99-109); POTASSIUM 4.5 mEq/L (3.7-5.4); SODIUM 136 mEq/L (136-147)
[2018-01-25 21:14] LABS: GLUCOSE 126 mg/dL (70-99)
[2018-01-25 21:18] LABS: CREATININE 1.3 mg/dL (0.6-1.3); GFR ESTIMATE (CALCULATED) > 59 mL/min/ (58.99-99999)
[2018-01-25 21:19] LABS: UREA NITROGEN (BUN) 29 mg/dL (9-23)
[2018-01-25 23:30] VITALS: BP 140/81
== END 2018-01-25 23:58 | disposition home or self-care (01) ==
LOC: EME → EDBD 19:37 → EME 23:58
PROVIDERS: Emergency Medicine Emergency Medical Services
DX: R22.1 Localized swelling, mass and lump, neck (principal); M54.2 Cervicalgia; M46.22 Osteomyelitis of vertebra, cervical region; J44.9 Chronic obstructive pulmonary disease, unspecified; E11.9 Type 2 diabetes mellitus without complications; Z79.4 Long term (current) use of insulin; Z86.74 Personal history of sudden cardiac arrest; Z86.14 Personal history of Methicillin resistant Staphylococcus aureus infection; Z89.511 Acquired absence of right leg below knee; Z86.73 Personal history of transient ischemic attack (TIA), and cerebral infarction without residual deficits; Z79.01 Long term (current) use of anticoagulants
CPT/HCPCS: 70490; 80048; 85027; 99281; 99285

== ENCOUNTER 2018-02-11 02:08 | Emergency (ER) | payer OTHER ==
[~2018-02-11] VITALS: Ht 180.3 cm; Wt 98.9 kg
[~2018-02-11 02:08] MED LIST changes: -MULTIVITAMINS1 EAC6 PO
[2018-02-11 02:48] LABS: HEMATOCRIT 25.4 % (38.0-50.0); HEMOGLOBIN 8.5 G/DL (12.5-16.6); MCH 28.8 PG (29.0-34.0); MCHC 33.5 G/DL (30.0-36.0); MCV 86.1 FL (86-99); PLATELET COUNT 162 K/uL (156-360); RBC DIS.WIDTH-CV 12.9 % (11.8-14.6); RBC DIS.WIDTH-SD 40.2 % (39-53); RED BLOOD COUNT 2.95 M/uL (4.00-5.50)
[2018-02-11 02:55] LABS: CHLORIDE 104 mEq/L (99-109); POTASSIUM 4.1 mEq/L (3.7-5.4); SODIUM 140 mEq/L (136-147)
[2018-02-11 02:57] LABS: GLUCOSE 201 mg/dL (70-99)
[2018-02-11 03:01] LABS: CREATININE 1.4 mg/dL (0.6-1.3); GFR ESTIMATE (CALCULATED) 55 mL/min/ (58.99-99999)
[2018-02-11 03:02] LABS: UREA NITROGEN (BUN) 29 mg/dL (9-23)
[2018-02-11 08:45] VITALS: BP 135/80
== END 2018-02-11 08:46 ==
LOC: EME → EDBD 02:08 → EME 02:08
PROVIDERS: Emergency Medicine
DX: M54.2 Cervicalgia (principal); G89.29 Other chronic pain; S12.000D Unspecified displaced fracture of first cervical vertebra, subsequent encounter for fracture with routine healing; S12.100D Unspecified displaced fracture of second cervical vertebra, subsequent encounter for fracture with routine healing; Z89.511 Acquired absence of right leg below knee; N28.9 Disorder of kidney and ureter, unspecified; D64.9 Anemia, unspecified; J44.9 Chronic obstructive pulmonary disease, unspecified; K21.9 Gastro-esophageal reflux disease without esophagitis; G62.9 Polyneuropathy, unspecified; F41.9 Anxiety disorder, unspecified; F32.9 Major depressive disorder, single episode, unspecified; F31.9 Bipolar disorder, unspecified; Z86.73 Personal history of transient ischemic attack (TIA), and cerebral infarction without residual deficits; Z87.442 Personal history of urinary calculi; Z86.14 Personal history of Methicillin resistant Staphylococcus aureus infection; Z86.74 Personal history of sudden cardiac arrest; Z88.1 Allergy status to other antibiotic agents; Z88.8 Allergy status to other drugs, medicaments and biological substances
CPT/HCPCS: 70450; 70498; 72125; 80048; 83605; 85027; 87040; 87077; 87186; 87801; 99281; 99285

== ENCOUNTER 2018-02-13 15:13 | Inpatient (IN) | payer OTHER ==
[~2018-02-13] VITALS: Ht 180.3 cm; Wt 99.5 kg
[2018-02-13 16:48] LABS: BASOPHIL (%) 0.8 % (0-1); EOSINOPHIL (%) 4.3 % (0-5); EOSINOPHIL COUNT 0.2 K/uL (0-0.3); HEMATOCRIT 25.6 % (38.0-50.0); HEMOGLOBIN 8.6 G/DL (12.5-16.6); IMMATURE GRANULOCYTE (%) 0.2 % (0.0-0.7); LYMPHOCYTE (%) 21.6 % (15-42); LYMPHOCYTE COUNT 1.1 K/uL (1.0-2.8); MCH 29.5 PG (29.0-34.0); MCHC 33.6 G/DL (30.0-36.0); MCV 87.7 FL (86-99); MONOCYTE (%) 9.1 % (3-12); MONOCYTE COUNT 0.4 K/uL (0-0.8); NEUTROPHIL COUNT 3.1 K/uL (1.8-6.4); PLATELET COUNT 150 K/uL (156-360); RBC DIS.WIDTH-CV 13.2 % (11.8-14.6); RBC DIS.WIDTH-SD 41.9 % (39-53); RED BLOOD COUNT 2.92 M/uL (4.00-5.50); WHITE BLOOD COUNT 4.9 K/uL (4.1-10.2)
[2018-02-13 17:09] LABS: CHLORIDE 101 MEQ/L (99-109); POTASSIUM 4.5 MEQ/L (3.7-5.4); SODIUM 135 MEQ/L (136-147)
[2018-02-13 17:15] LABS: CREATININE 1.8 MG/DL (0.6-1.3); GFR ESTIMATE (CALCULATED) 41 mL/min/ (58.99-99999); GLUCOSE 210 mg/dL (70-99); UREA NITROGEN (BUN) 41 mg/dL (9-23)
[2018-02-13] MEDS ORDERED: ADULT ASPIRIN R81 MG PO (17:19)
[2018-02-13] MEDS ORDERED: FERROUS SULFAT325 MG PO (17:20)
[2018-02-13] MEDS ORDERED: LEXAPRO10 MG PO (17:20)
[2018-02-13] MEDS ORDERED: ATIVAN0.5 MG PO (17:21)
[2018-02-13] MEDS ORDERED: FOLIC ACID1 MG PO (17:21)
[2018-02-13] MEDS ORDERED: TRAZODONE HCL50 MG PO (17:23)
[2018-02-13] MEDS ORDERED: TYLENOL REGULA325 MG PO (17:23)
[2018-02-13] MEDS ORDERED: VANCOMYCIN HCL500 MG IV (17:24)
[2018-02-13] MEDS ORDERED: ASCORBIC ACID250 MG PO (17:25)
[2018-02-13] MEDS ORDERED: COLACE100 MG PO (17:25)
[2018-02-13] MEDS ORDERED: LEVEMIR100 UNIT/2 SC (17:26)
[2018-02-13] MEDS ORDERED: RIFADIN300 MG PO (17:26)
[2018-02-13] MEDS ORDERED: FLORASTOR250 MG PO (17:27)
[2018-02-13] MEDS ORDERED: BETHANECHOL CHL25 MG PO (17:28)
[2018-02-13] MEDS ORDERED: SENNA8.6 MG PO (17:28)
[2018-02-13] MEDS ORDERED: GLUCO BURST37.5 GM PO (17:30)
[2018-02-13] MEDS ORDERED: OXYCODONE HCL10 MG PO (17:31)
[2018-02-13 23:55] VITALS: BP 149/82
[2018-02-14 04:10] VITALS: BP 140/79
[2018-02-14 05:24] LABS: HEMATOCRIT 23.1 % (38.0-50.0); HEMOGLOBIN 7.5 G/DL (12.5-16.6); MCH 28.4 PG (29.0-34.0); MCHC 32.5 G/DL (30.0-36.0); MCV 87.5 FL (86-99); PLATELET COUNT 134 K/uL (156-360); RBC DIS.WIDTH-CV 13.2 % (11.8-14.6); RBC DIS.WIDTH-SD 41.3 % (39-53); RED BLOOD COUNT 2.64 M/uL (4.00-5.50); WHITE BLOOD COUNT 4.3 K/uL (4.1-10.2)
[2018-02-14 05:49] LABS: CHLORIDE 104 MEQ/L (99-109); CREATININE 1.6 MG/DL (0.6-1.3); GFR ESTIMATE (CALCULATED) 47 mL/min/ (58.99-99999); GLUCOSE 221 mg/dL (70-99); POTASSIUM 4.6 MEQ/L (3.7-5.4); SODIUM 136 MEQ/L (136-147); UREA NITROGEN (BUN) 39 mg/dL (9-23)
[2018-02-14 08:00] VITALS: BP 121/71
[2018-02-14 12:00] VITALS: BP 130/74
[2018-02-14 19:15] VITALS: BP 130/70
[2018-02-14 23:20] VITALS: BP 130/70
[2018-02-15 04:26] VITALS: BP 135/80
[2018-02-15 05:38] LABS: BASOPHIL (%) 0.8 % (0-1); EOSINOPHIL (%) 4.7 % (0-5); EOSINOPHIL COUNT 0.2 K/uL (0-0.3); HEMATOCRIT 24.1 % (38.0-50.0); HEMOGLOBIN 7.6 G/DL (12.5-16.6); IMMATURE GRANULOCYTE (%) 0.4 % (0.0-0.7); LYMPHOCYTE (%) 31.4 % (15-42); LYMPHOCYTE COUNT 1.5 K/uL (1.0-2.8); MCH 27.7 PG (29.0-34.0); MCHC 31.5 G/DL (30.0-36.0); MONOCYTE (%) 11.7 % (3-12); MONOCYTE COUNT 0.6 K/uL (0-0.8); NEUTROPHIL COUNT 2.4 K/uL (1.8-6.4); PLATELET COUNT 139 K/uL (156-360); RBC DIS.WIDTH-CV 13.3 % (11.8-14.6); RBC DIS.WIDTH-SD 42.5 % (39-53); RED BLOOD COUNT 2.74 M/uL (4.00-5.50); WHITE BLOOD COUNT 4.7 K/uL (4.1-10.2)
[2018-02-15 06:17] LABS: CHLORIDE 105 MEQ/L (99-109); CREATININE 1.5 MG/DL (0.6-1.3); GFR ESTIMATE (CALCULATED) 51 mL/min/ (58.99-99999); GLUCOSE 110 mg/dL (70-99); POTASSIUM 4.4 MEQ/L (3.7-5.4); SODIUM 137 MEQ/L (136-147); UREA NITROGEN (BUN) 35 mg/dL (9-23)
[2018-02-15 08:45] VITALS: BP 152/88
[2018-02-15 15:53] VITALS: BP 171/94
[2018-02-16 05:27] LABS: HEMATOCRIT 22.1 % (38.0-50.0); HEMOGLOBIN 7.3 G/DL (12.5-16.6); MCH 28.6 PG (29.0-34.0); MCV 86.7 FL (86-99); PLATELET COUNT 118 K/uL (156-360); RBC DIS.WIDTH-CV 13.2 % (11.8-14.6); RBC DIS.WIDTH-SD 41.7 % (39-53); RED BLOOD COUNT 2.55 M/uL (4.00-5.50); WHITE BLOOD COUNT 4.4 K/uL (4.1-10.2)
[2018-02-16 06:09] LABS: CHLORIDE 103 MEQ/L (99-109); CREATININE 1.2 MG/DL (0.6-1.3); GFR ESTIMATE (CALCULATED) > 59 mL/min/ (58.99-99999); POTASSIUM 4.3 MEQ/L (3.7-5.4); SODIUM 136 MEQ/L (136-147); UREA NITROGEN (BUN) 32 mg/dL (9-23)
[2018-02-16 06:18] LABS: GLUCOSE 224 mg/dL (70-99)
[2018-02-16 15:34] VITALS: BP 135/72
[2018-02-16 20:09] VITALS: BP 139/69
[2018-02-17 04:16] VITALS: BP 137/93
[2018-02-17 06:07] LABS: CREATININE 1.5 MG/DL (0.6-1.3); VANCOMYCIN, TROUGH 19.3 MCG/ML (10-20)
[2018-02-17 19:30] VITALS: BP 110/62
[2018-02-17 21:21] VITALS: BP 106/56
[2018-02-17 23:31] VITALS: BP 122/61
[2018-02-18 03:39] VITALS: BP 113/59
[2018-02-18 08:22] VITALS: BP 118/64
[2018-02-18 09:31] LABS: HEMATOCRIT 23.1 % (38.0-50.0); HEMOGLOBIN 7.4 G/DL (12.5-16.6); MCH 28.1 PG (29.0-34.0); MCV 87.8 FL (86-99); PLATELET COUNT 138 K/uL (156-360); RBC DIS.WIDTH-CV 13.5 % (11.8-14.6); RED BLOOD COUNT 2.63 M/uL (4.00-5.50)
[2018-02-18 10:07] LABS: CHLORIDE 106 MEQ/L (99-109); CREATININE 1.5 MG/DL (0.6-1.3); GFR ESTIMATE (CALCULATED) 51 mL/min/ (58.99-99999); POTASSIUM 4.4 MEQ/L (3.7-5.4); SODIUM 139 MEQ/L (136-147)
[2018-02-18 10:19] LABS: GLUCOSE 77 mg/dL (70-99); UREA NITROGEN (BUN) 49 mg/dL (9-23)
[2018-02-18 10:43] LABS: VANCOMYCIN, TROUGH 12.2 MCG/ML (10-20)
[2018-02-18 11:52] VITALS: BP 140/68
[2018-02-18] MEDS ORDERED: VANCOMYCIN HCL1 GM IV (12:16)
== END 2018-02-18 15:10 | DRG 539 ==
LOC: EME 15:13 → EDOF 21:27 → 4EAST 21:27 → ENRESERV 21:33 → 4EAST 23:56 → ENPENDDIS 02-18 → 4EAST 02-18 15:10
PROVIDERS: Emergency Medicine; Hospitalist; Internal Medicine
DX: M46.22 Osteomyelitis of vertebra, cervical region (principal); B95.62 Methicillin resistant Staphylococcus aureus infection as the cause of diseases classified elsewhere; B19.20 Unspecified viral hepatitis C without hepatic coma; E11.65 Type 2 diabetes mellitus with hyperglycemia; L02.11 Cutaneous abscess of neck; D63.8 Anemia in other chronic diseases classified elsewhere; F41.9 Anxiety disorder, unspecified; T84.318A Breakdown (mechanical) of other bone devices, implants and grafts, initial encounter; M54.2 Cervicalgia; R78.81 Bacteremia; M54.12 Radiculopathy, cervical region; M53.2X2 Spinal instabilities, cervical region; N17.9 Acute kidney failure, unspecified; I12.9 Hypertensive chronic kidney disease with stage 1 through stage 4 chronic kidney disease, or unspecified chronic kidney disease; N18.3 Chronic kidney disease, stage 3 (moderate); G89.4 Chronic pain syndrome; D63.1 Anemia in chronic kidney disease; E11.51 Type 2 diabetes mellitus with diabetic peripheral angiopathy without gangrene; E11.42 Type 2 diabetes mellitus with diabetic polyneuropathy; E11.22 Type 2 diabetes mellitus with diabetic chronic kidney disease; S12.000D Unspecified displaced fracture of first cervical vertebra, subsequent encounter for fracture with routine healing; J96.91 Respiratory failure, unspecified with hypoxia; Z86.711 Personal history of pulmonary embolism; Z79.01 Long term (current) use of anticoagulants; Z89.412 Acquired absence of left great toe; Z79.4 Long term (current) use of insulin; Z86.14 Personal history of Methicillin resistant Staphylococcus aureus infection; Z98.1 Arthrodesis status; Z89.511 Acquired absence of right leg below knee; Z80.41 Family history of malignant neoplasm of ovary; Z82.49 Family history of ischemic heart disease and other diseases of the circulatory system; Z86.73 Personal history of transient ischemic attack (TIA), and cerebral infarction without residual deficits; S12.100D Unspecified displaced fracture of second cervical vertebra, subsequent encounter for fracture with routine healing; N40.0 Benign prostatic hyperplasia without lower urinary tract symptoms; I73.9 Peripheral vascular disease, unspecified; E11.69 Type 2 diabetes mellitus with other specified complication
CPT/HCPCS: 76937; 80048; 80202; 82565; 82948; 83605; 85025; 85027; 87040; 99281; 99285; J1170; J1815; J3010; J3370; J7030

== ENCOUNTER 2018-05-17 11:58 | Emergency (ER) | payer OTHER ==
[~2018-05-17] VITALS: Ht 180.3 cm; Wt 104.2 kg
[~2018-05-17 11:58] MED LIST changes: +ADULT ASPIRIN R81 MG PO; +ATIVAN0.5 MG PO; +BETHANECHOL CHL25 MG PO; +LEXAPRO10 MG PO; +RIFADIN300 MG PO; +TRAZODONE HCL50 MG PO; +VANCOMYCIN HCL1 GM IV; +VANCOMYCIN HCL500 MG IV
[2018-05-17 14:02] VITALS: BP 109/75
== END 2018-05-17 14:08 | disposition short-term general hospital (02) ==
LOC: EME 11:58
DX: T84.398A Other mechanical complication of other bone devices, implants and grafts, initial encounter (principal); S12.000A Unspecified displaced fracture of first cervical vertebra, initial encounter for closed fracture; S12.100A Unspecified displaced fracture of second cervical vertebra, initial encounter for closed fracture; S12.200A Unspecified displaced fracture of third cervical vertebra, initial encounter for closed fracture; X58.XXXA Exposure to other specified factors, initial encounter; Z86.74 Personal history of sudden cardiac arrest; I10 Essential (primary) hypertension; I25.2 Old myocardial infarction; E11.9 Type 2 diabetes mellitus without complications; Z79.4 Long term (current) use of insulin; Z79.01 Long term (current) use of anticoagulants; Z79.82 Long term (current) use of aspirin; Z86.73 Personal history of transient ischemic attack (TIA), and cerebral infarction without residual deficits; Z86.14 Personal history of Methicillin resistant Staphylococcus aureus infection
CPT/HCPCS: 99281; 99284